=== PATIENT | male | born 1960 | race Caucasian/White ===

== ENCOUNTER 2016-06-21 16:45 | Observation (INO) | payer OTHER ==
[~2016-06-21] VITALS: Ht 172.7 cm; Wt 84.8 kg
--- NOTE | 2016-06-21 16:58 | NUR ---
TRIAGE; PT TO ED WITH CP FOR A FEW WEEKS. STATES THAT HE HAD A HEART ATTACK LAST SEPTEMBER. IS DUE FOR A DIAGNOSTIC CARDIAC CATH TO CHECK STENTS AND A BLOCKAGE. STATES INTERNAL SPECIALIST IS DR BURGESS. FEELS SOB AT TIMES. STATES HIS CHEST FEELS TIGHT CURRENTLY. RA SAT 98% AT THIS TIME.
--- NOTE | 2016-06-21 17:10 | NUR ---
PT AMBULATORY TO RADIOLOGY FOR X-RAY.
--- NOTE | 2016-06-21 17:17 | NUR ---
PT RETURN FROM RADIOLOGY AT THIS TIME.
--- NOTE | 2016-06-21 17:31 | RADIOLOGY REPORT ---
EXAMINATION: XR CHEST CLINICAL INFORMATION: Chest pain. History of myocardial infarction last year COMPARISON: Chest x-ray 09/30/2015 TECHNIQUE: 2 views of the chest were obtained. FINDINGS: No significant abnormality is noted involving the heart, lungs, mediastinum, bony thorax or soft tissues. IMPRESSION: No acute abnormality of the chest.
--- NOTE | 2016-06-21 17:40 | NUR ---
BLOOD DRAWN AND SENT TO LAB
[2016-06-21 17:43] LABS: ABSOLUTE BASOPHIL COUNT 0.1 /CUMM (0.0-0.2); ABSOLUTE EOSINOPHIL COUNT 0.1 /CUMM (0.0-0.7); ABSOLUTE GRANULOCYTE CT 3.8 /CUMM (1.4-6.5); ABSOLUTE LYMPH COUNT 1.9 /CUMM (1.2-3.4); ABSOLUTE MONOCYTE COUNT 0.5 /CUMM (0.10-0.60); BASOPHIL % 1.2 % (0.0-2.0); EOSINOPHIL % 1.3 % (0-5); GRANULOCYTE % 59.4 % (42.2-75.2); HEMATOCRIT 41.5 % (42-52); MEAN CORPUSCULAR HGB 31.9 PG (27.0-31.0); MEAN CORPUSCULAR HGB CONC 33.9 G/DL (33.0-37.0); MEAN CORPUSCULAR VOLUME 94.1 FL (80.0-94.0); MEAN PLATELET VOLUME 7.9 FL (7.4-10.4); PLATELET COUNT 212 /CUMM (130-400); RBC DISTRIBUTION WIDTH 12.5 % (11.5-14.5); RED BLOOD CELL CT 4.41 /CUMM (4.70-6.10); WHITE BLOOD CELL COUNT 6.4 /CUMM (4.8-10.8)
--- NOTE | 2016-06-21 17:45 | NUR ---
MATERIALS SCHEDULER AT BEDSIDE
--- NOTE | 2016-06-21 17:50 | ED CARDIAC/CP/PALPITATIONS ---
History of Present Illness General Chief Complaint: Chest Pain Stated Complaint: CP X COUPLE WEEKS Source: patient Exam Limitations: no limitations Allergies Coded Allergies: NO KNOWN ALLERGIES (09/30/15) Triage Note: TRIAGE; PT TO ED WITH CP FOR A FEW WEEKS. STATES THAT HE HAD A HEART ATTACK LAST SEPTEMBER. IS DUE FOR A DIAGNOSTIC CARDIAC CATH TO CHECK STENTS AND A BLOCKAGE. STATES TRAINING AND DEVELOPMENT REP IS DR BURGESS. FEELS SOB AT TIMES. STATES HIS CHEST FEELS TIGHT CURRENTLY. RA SAT 98% AT THIS TIME. Triage Nurses Notes Reviewed? yes HPI: 55 YO MALE WITH HX OF DE IN SEPTEMBER SP CATH WITH 1 STENT LAD, ON PLAVIX AND ASA , METOPROLOL, TANYA AND STATIN, HERE WITH CO 6MONTHS OF CHEST PAIN, CONSTANT WITH W INTERMITTENT INTENSITY, WOSRE SINCE YESTERDAY. 8/10 SUB STERNAL NON RADIATING TIGHTNESS IN THE CHEST, WORSE WITH ANY ACTIVITY. ASSOCIATED SOB, DIZZINESS, NO NV, MILD DIAPHORESIS. GETTING WORSE OVER THE LAST FEW DAYS. HAD [address]M [address] BURGESS LAST WEEK AND HE WAS CONSIDERING REPEAT CATH PER THE PATIENT. HE WAS GIVEN INDOMETHACIN IN THE PAST, UNSURE IF IT HAS HELPED AT ALL. (DARREN DASH,JORDAN) Vital Signs & Intake/Output Vital Signs & Intake/Output Vital Signs Date Time Temp Pulse Resp B/P Pulse O2 O2 Flow FiO2 Ox Delivery Rate 06/21 2052 97.2 80 18 162/96 91 Room Air 06/21 1657 97.6 64 16 148/91 98 Room Air Reconcile Medications Alprazolam 0.5 MG TABLET 1 TAB PO BID PRN anxeity (Reported) Aspirin (Aspirin*) 325 MG TABLET 1 TAB PO DAILY HEART/BLOOD (Reported) Atorvastatin Calcium 80 MG TABLET 0.5 TAB PO DAILY COLESTEROL (Reported) Cholecalciferol (Vitamin D3) (Vitamin D) 1,000 UNIT TABLET 1 TAB PO DAILY SUPPLEMENT (Reported) Clopidogrel Bisulfate (Clopidogrel) 75 MG TABLET 1 TAB PO DAILY BLOOD THINNER (Reported) Lisinopril 5 MG TABLET 1 TAB PO DAILY HTN (Reported) Melatonin 1 MG TABLET 1 TAB PO AT BEDTIME PRN SLEEP (Reported) Pantoprazole Sodium (Protonix) 40 MG TABLET.DR 1 TAB PO DAILY ACID REFLUX Tadalafil (Cialis) 20 MG TABLET 1 TAB PO AD PRN ED (Reported) (ZEB DE SANTIAGO,GALA Martinez) Past History Travel History Traveled to [place] past 21 day No Medical History Any Pertinent Medical History? see below for history Neurological: NONE EENT: NONE Cardiovascular: hypertension, hyperlipidemia, myocardial infarction Respiratory: NONE Gastrointestinal: GERD, hiatal hernia Hepatic: NONE Renal: KIDNEY STONES Psychiatric: NONE Endocrine: NONE Blood Disorders: NONE Cancer(s): NONE Surgical History Surgical History: CARDIAC STENT Psychosocial History What is your primary language Peruvian Tobacco Use: Never used Family History Hx Contributory? Yes (GRANDFATHER WITH DE IN 50'S) (JORDAN ORNELAS) Review of Systems Review of Systems Constitutional: Reports: see HPI. EENTM: Reports: no symptoms. Respiratory: Reports: no symptoms. Cardiovascular: Reports: see HPI. GI: Reports: no symptoms. Genitourinary: Reports: no symptoms. Musculoskeletal: Reports: no symptoms. Skin: Reports: no symptoms. Neurological/Psychological: Reports: no symptoms. Hematologic/Endocrine: Reports: no symptoms. Immunologic/Allergic: Reports: no symptoms. All Other Systems: Reviewed and Negative (JORDAN ORNELAS) Physical Exam Physical Exam Cardiovascular: regular rate/rhythm Comments: Well-developed well-nourished person in no acute distress HEENT: Normal EENT exam, extraocular motion intact, no nystagmus. Pupils equally round and reactive to light. Nose is atraumatic. Pharynx normal. No swelling or edema. Neck: Supple, no lymphadenopathy, normal range of motion without pain or tenderness Back: Nontender, no CVA tenderness. Full range of motion Cardiovascular: Regular rate and rhythms no murmurs, normal JVP Respiratory: Chest nontender. No respiratory distress. Breath sounds clear to auscultation bilaterally Abdomen: Soft, nontender nondistended, no appreciable organomegaly. Normal bowel sounds. No ascites Extremity: No edema, no calf tenderness to palpation, normal and equal pulses. Neuro: Alert oriented x3, motor sensory normal, cranial nerves II through XII grossly intact. Skin: No appreciable rash on exposed skin, skin is warm and dry. Psych: Mood and affect is normal, memory and judgment is normal. Core Measures ACS in differential dx? Yes Severe Sepsis Present: No Septic Shock Present: No (JORDAN ORNELAS) Progress Differential Diagnosis: AMI, aortic dissection, atrial fibrillation, cholecystitis, CHF/pulm edema, costochondritis, hyperkalemia, hypovolemia, hyperthyroid, hyperventilation, intracranial hemorrhage, musculoskeletal pain, myocarditis, pancreatitis, pericarditis, pneumonia, pneumothorax, PSVT, pulmonary embolism, PUD/GERD, PVCs/PACs, respiratory failure, rib fracture, sepsis, unstable angina, V-fib/V-Tach, WPW syndrome, Primo SYNDROME Diagnostic Imaging: Viewed by Me: Radiology Read. Discussed w/RAD: Radiology Read. CXR Impression: PATIENT: ABDI HAMPTON PRESENT AGE: 55 PATIENT ACCOUNT NO: [id number] : 59 LOCATION: [facility] ORDERING PHYSICIAN: ALVAREZ MORALES DO (TBS) SERVICE DATE: 06/21/16-1658 EXAM TYPE: RAD - XRY- CHEST XRAY, PA AND LATERAL EXAMINATION: XR CHEST CLINICAL INFORMATION: Chest pain. History of myocardial infarction last year COMPARISON: Chest x-ray 2015 TECHNIQUE: 2 views of the chest were obtained. FINDINGS: No significant abnormality is noted involving the heart, lungs, mediastinum, bony thorax or soft tissues. IMPRESSION: No acute abnormality of the chest. DICTATED BY: RANDY HARRINGTON MD DATE/TIME DICTATED:06/21/161725 SUPERVISOR SPEECH:GALILEA DATE/ TIME TRANSCRIBED:06/21/16 Initial ED EKG: NSR, 61 BPM. q WAVES NOTED ANTERIOR, NO st OR t-WAVE CHANGES. oLD ekg SHOWS ACUTE ANTERIOR mi Prior EKG: changed Rhythm Strip: normal sinus rhythm Comments: Patient was seen in the ER by Dr. Burgess. 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 Considering transferring for cath tomorrow if his serial EKGs and troponins are negative. Discussed with Dr. Carrington. (JORDAN ORNELAS) Plan of Care: Orders Procedure Date/time Status Regular Diet 06/22 B Active TROPONIN LEVEL 06/22 0600 Active EKG 06/22 0600 Active TROPONIN LEVEL 06/22 0000 Active EKG 06/22 0000 Active Pathway - chart 06/21 2056 Active Code Status 06/21 2056 Active Intake & Output 06/21 2022 Active OXYGEN SETUP (GEN) 06/21 1856 Active Saline Lock 06/21 1856 Active Misc Message 06/21 1856 Active ED Holding Orders 06/21 1856 Active Vital Signs 06/21 1856 Active Activity/Ambulation 06/21 1856 Active Code Status 06/[address] in observation 06/22 1855 Active Patient Data 06/21 1835 Active Add-on Test (ER Only) 06/21 1813 Active WESTERGREN SED RATE 06/21 1728 Complete TROPONIN LEVEL 06/21 165 Complete COMPREHENSIVE METABOLIC PANEL 06/21 165 Complete CBC WITHOUT DIFFERENTIAL 06/21 165 Complete EKG 06/21 164 Active House Staff 06/21 UNK Active VTE Mechanical Prophylaxis 06/21 UNK Active Current Medications Sig/Ulisses Start time Last Medication Dose Stop Time Status Admin Aspirin 325 MG DAILY 06/22 1000 UNVr (Aspirin) Atorvastatin Calcium 40 MG DAILY 06/22 1000 UNVr (Lipitor) Clopidogrel Bisulfate 75 MG DAILY 06/22 1000 UNVr (Plavix) Enoxaparin Sodium 40 MG DAILY 06/22 1000 UNVr (Lovenox) Lisinopril 5 MG DAILY 06/22 1000 UNVr (Prinivil) Acetaminophen 650 MG Q6P PRN 06/21 2100 UNVr (Tylenol) Alprazolam 0.5 MG BID PRN 06/21 2100 UNVr (Xanax) 06/28 2058 Ibuprofen 600 MG Q6P PRN 06/21 2100 UNVr (Motrin) Morphine Sulfate 2 MG Q8P PRN 06/21 2100 UNVr (Morphine) Laboratory Tests 06/21/16 1728: Anion Gap 12, Estimated GFR > 60, BUN/Creatinine Ratio 16.3, Glucose 82, Calcium 9.5, Total Bilirubin 0.9, AST 45, ALT 53, Alkaline Phosphatase 52, Troponin I < 0.01, Total Protein 7.4, Albumin 4.7, Globulin 2.7, Albumin/Globulin Ratio 1.7, CBC w Diff NO MAN DIFF REQ, RBC 4.41 L, MCV 94.1 H, MCH 31.9 H, RDW 12.5, MPV 7.9, Gran % 59.4, Lymphocytes % 30.1, Monocytes % 8.0, Eosinophils % 1.3, Basophils % 1.2, Absolute Granulocytes 3.8, Absolute Lymphocytes 1.9, Absolute Monocytes 0.5, Absolute Eosinophils 0.1, Absolute Basophils 0.1, PUBS MCHC 33.9, ESR Westergren 2 Departure Departure Disposition: STILL A PATIENT Condition: Stable Clinical Impression Primary Impression: Chest pain Qualifiers: Chest pain type: precordial pain Qualified Code: R07.2 - Precordial pain Referrals: MORRO FERNÁNDEZ MD (PCP/Family) Departure Forms: Customer Survey General Discharge Information Observation Note Spoke With: JENIFER DE SANTIAGO PhD,SRIDEVI Amin Physician Advisor Notified: GALA CARRINGTON MD Place Patient In: Non-ED OBS Care Area Rationale for Observation: My rational for observation is as follows . CHEST PAIN, SP STEMI AND STENT. NEEDS ECHO AND POSSIBLE CATH TOMORROW. (JORDAN ORNELAS) Departure Prescriptions: Current Visit Scripts Pantoprazole Sodium (Protonix) 1 TAB PO DAILY #30 TAB PA/FOOTBALL SCOUT Co-Sign Statement Statement: ED Attending supervision documentation- [X] I saw and evaluated the patient. I have also reviewed all the pertinent lab results and diagnostic results. I agree with the findings and the plan of care as documented in the PA's/FOOTBALL SCOUT's documentation. [X] I have reviewed the ED Record and agree with the PA's/FOOTBALL SCOUT's documentation. [] Additions or exceptions (if any) to the PAs/FOOTBALL SCOUT's note and plan are summarized below: [] (ZEB DE SANTIAGO,GALA Martinez) Critical Care Note Critical Care Note Critical Care Time: non-applicable (JORDAN ORNELAS)
[2016-06-21] MEDS ORDERED: CLOPIDOGREL75 M1 PO (18:10)
[2016-06-21] MEDS ORDERED: ALPRAZOLAM0.5 M4 PO (18:10)
[2016-06-21] MEDS ORDERED: LISINOPRIL5 M1 PO (18:10)
[2016-06-21] MEDS ORDERED: INDOMETHACIN50 M1 PO (18:11)
[2016-06-21] MEDS ORDERED: ATORVASTATIN CA80 M1 PO (18:11)
--- NOTE | 2016-06-21 18:35 | Cons- Cardiology ---
General Information and HPI Consulting Request Date of Consult: 06/21/16 Requested By: ER History of Present Illness: Milo is a 55 year old male with history of hypertension, dyslipidemia and tobacco abuse who had an anterior STEMI complicated by pericarditis. He is now s /p PCI of his LAD. Unfortunately, this patient never experienced complete relief of his chest discomfort although it did improve to some extent. He presents to the ER for persistent chest pressure exacerbated by physical exertion. It is accompanied by shortness of breath. He also tends to feel very fatigued by physical activity. Lightheadedness and palpitations are not part of his clinical syndrome. He is very anxious about the possibility of having another heart attack. Cardiac workup after his SD showed an EF of 37% with no evidence of ischemia. His echocardiogram showed a low normal EF of 50% with mild anteroseptal, anteroapical and apical hypokinesis. There was borderline left ventricular hypertrophy. In terms of cardiac valves he demonstrates trace MR and TR. To review this patient's prior history, he had longstanding epigastric discomfort that was ingored until presenting to [facility] with an acute anterior ST elevation SD. He received a 4.0 x 18mm Resolute stent to his proximal LAD for a 100% stenosis. He also was found to have a 50% stenosis of the proximal large first diagonal branch. The LCX had luminal irregularities and the RCA was non-dominant, tortuous and patent. Post procedure he demonstrated persistent ST elevations and was treated with aspirin at high doses and colchicine for pericarditis. Allergies/Medications Allergies: Coded Allergies: NO KNOWN ALLERGIES (09/30/15) Home Med List: Alprazolam 0.5 MG TABLET 1 TAB PO TIDPRN ANXIETY (Reported) Atorvastatin Calcium 80 MG TABLET 1 TAB PO DAILY COLESTEROL (Reported) Clopidogrel Bisulfate (Clopidogrel) 75 MG TABLET HTN (Reported) Indomethacin 50 MG CAPSULE 1 CAP PO TID PAIN (Reported) with food Lisinopril 5 MG TABLET 1 TAB PO DAILY HTN (Reported) Review of Systems Review of Systems: A twelve point review of systems is unremarkable. Past History Travel History Traveled to [place] past 21 day No Medical History Neurological: NONE EENT: NONE Cardiovascular: hypertension, hyperlipidemia, myocardial infarction (anterior ST elevation) Respiratory: NONE Gastrointestinal: GERD, hiatal hernia Hepatic: NONE Renal: KIDNEY STONES Psychiatric: NONE Endocrine: NONE Blood Disorders: NONE Cancer(s): NONE Surgical History Surgical History: cholecystectomy, vasectomy, AC joint repair Family History Family History Reviewed? Father: SD at age 56 Psychosocial History Smoking Status: Former Smoker (cigars) ETOH Use: occasional use Exam & Diagnostic Data Vital Signs and I&O Vital Signs Date Time Temp Pulse Resp B/P Pulse O2 O2 Flow FiO2 Ox Delivery Rate 06/21 1657 97.6 64 16 148/91 98 Room Air Physical Exam: General: WD/ WN male in NAD; alert and oriented x 3 HEENT: NC/AT, PERRL, EOMI Neck: no JVD, no carotid bruit Heart: RRR w/o murmur Lungs: clear bilaterally Abdomen: soft, NT, +ve bowel sounds Extremities: no edema Diagnostic Data EKG Results sinus with anterior Q waves consistent with old SD Assessment/Plan Assessment/Plan * 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 Follow three sets of cardiac enzymes although the first set is WNL. I doubt an ACS but anticipate a cardiac catheterization to lay this issue to rest. For now continue all his usual cardiac medications without change and give a dose of Toradol. Consult Acknowledgment - Thank you for your consult request.
--- NOTE | 2016-06-21 18:41 | History & Physical ---
General Information and HPI MD Statement: I have seen and personally examined MEMOABDI Nelson and documented this H&P. The patient is a 55 year old M who presented with a patient stated chief complaint of chest pain Allergies/Medications Allergies: Coded Allergies: NO KNOWN ALLERGIES (09/30/15) Home Med list Alprazolam 0.5 MG TABLET 1 TAB PO TIDPRN ANXIETY (Reported) Atorvastatin Calcium 80 MG TABLET 1 TAB PO DAILY COLESTEROL (Reported) Clopidogrel Bisulfate (Clopidogrel) 75 MG TABLET HTN (Reported) Indomethacin 50 MG CAPSULE 1 CAP PO TID PAIN (Reported) with food Lisinopril 5 MG TABLET 1 TAB PO DAILY HTN (Reported) Past History Travel History Traveled to [place] past 21 day No Medical History Neurological: NONE EENT: NONE Cardiovascular: hypertension, hyperlipidemia, myocardial infarction (anterior ST elevation) Respiratory: NONE Gastrointestinal: GERD, hiatal hernia Hepatic: NONE Renal: KIDNEY STONES Psychiatric: NONE Endocrine: NONE Blood Disorders: NONE Cancer(s): NONE Surgical History Surgical History: cholecystectomy, vasectomy AC joint repair Past Family/Social History Psychosocial History Smoking Status: Former Smoker (cigars) ETOH Use: occasional use Exam & Diagnostic Data Diagnostic Data EKG Results sinus with anterior Q waves consistent with old CO Core Measures/Miscellaneous Severe Sepsis Severe Sepsis Present: No Septic Shock Septic Shock Present: No
[2016-06-21] MEDS ORDERED: ASPIRIN325 M2 PO (19:34)
[2016-06-21] MEDS ORDERED: CIALIS20 M1 PO (19:38)
[2016-06-21] MEDS ORDERED: VITAMIN D1000 UNIT PO (19:39)
[2016-06-21] MEDS ORDERED: MELATONIN1 M2 PO (19:40)
--- NOTE | 2016-06-21 19:58 | NUR ---
Emergency Dept UC Admit Note: To be admitted to [facility] by DR BURGESS with CHEST PAIN/DYSPNEA as the diagnosis, to TELE/OBS location. Nursing Linter Tender and admitting notified 06/21/16 at 1859 PT WILL GO TO ROOM ROOM 180-2
--- NOTE | 2016-06-21 20:22 | NUR ---
REPORT GIVEN TO THERESA CLAY
--- NOTE | 2016-06-21 21:08 | NUR ---
TRANSPORT HERE FOR PT
--- NOTE | 2016-06-21 21:14 | History & Physical ---
RAMONA SINGH MD 06/21/162053: General Information and HPI MD Statement: I have seen and personally examined ABDI HAMPTON and documented this H&P. The patient is a 55 year old M who presented with a patient stated chief complaint of worsening chest pain. Source of Information: patient, family, old records Exam Limitations: no limitations History of Present Illness: 88 year old man with past medical history of myocardial infarction s/p PCI with stent, hypertension, hyperlipidemia and GERD seen for evaluation of worsening chest pain over the past three days. Patient has a recent history of anterior ST elevation myocardial infarction on for which he was initially evaluated in the [place] ED and transfered to [facility]. He underwent PCI with placement of a resolute stent in the LAD for a 100% occlusion. Patient reports that since this intervention he has had mild substernal chest discomfort without aggravating or alleviating factors. Patient was recently reportedly evaluated by Dr. Markham in his office at his 6 month follow up where it was deciced that patient would benefit from another cardiac catheterization in the near future for further assessment of his persistent chest pain. This was deferred as the patient has multiple other events in his life that make scheduling this difficult. Presently patient complains of worsening of this persistent chest discomfort over the past three days with pain of 6-7/10 located in his mid chest with radiation to the left and right chest wall and right side of his neck. He reports associated dizzyness and decreased exercise tolerance secondary to shortness of breath but otherwise denies any blurred/double vision, headache, fever, chills, sweating, palpitations, cough, nausea, vomiting, diarrhea, numbness/tingling. 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 his stress, he eats a healthy diet and maintains physical activity with pushups and walking Allergies/Medications Allergies: Coded Allergies: NO KNOWN ALLERGIES (09/30/15) Past History Travel History Traveled to [place] past 21 day No Medical History Neurological: NONE EENT: NONE Cardiovascular: hypertension, hyperlipidemia, myocardial infarction (anterior ST elevation) Respiratory: NONE Gastrointestinal: GERD, hiatal hernia Hepatic: NONE Renal: KIDNEY STONES Psychiatric: NONE Endocrine: NONE Blood Disorders: NONE Cancer(s): NONE Surgical History Surgical History: cholecystectomy, vasectomy AC joint repair Past Family/Social History Psychosocial History Where do you live? Home Who Do You Live With? spouse Services at Home: None Primary Language: Thai Smoking Status: Former Smoker (cigars) ETOH Use: occasional use Review of Systems Review of Systems Constitutional: Reports: see HPI. Exam & Diagnostic Data Last 24 Hrs of Vital Signs/I&O Vital Signs Date Time Temp Pulse Resp B/P Pulse O2 O2 Flow FiO2 Ox Delivery Rate 06/21 2052 97.2 80 18 162/96 91 Room Air 06/21 1657 97.6 64 16 148/91 98 Room Air Physical Exam General Appearance Alert, Oriented X3, Cooperative, No Acute Distress Skin No Rashes, No Breakdown, No Significant Lesion HEENT Atraumatic, PERRLA, EOMI, Mucous Membr. moist/pink Neck Supple, No JVD, +2 Carotid Pulse wo Bruit, No LAD Cardiovascular Regular Rate, Normal S1, Normal S2, No Murmurs, No chest wall tenderness of deformity Lungs Clear to Auscultation, Normal Air Movement Abdomen Normal Bowel Sounds, Soft, No Tenderness, No Hepatospenomegaly, No Masses Neurological Normal Gait, Normal Speech, Normal Tone, Cranial Nerves 3-12 NL Extremities No Clubbing, No Cyanosis, No Edema, Normal Pulses, No Tenderness/ Swelling Vascular Normal Pulses, Pulses Symmetrical Last 24 Hrs of Labs/Joseph: Laboratory Tests 06/21/16 1728: Anion Gap 12, Estimated GFR > 60, BUN/Creatinine Ratio 16.3, Glucose 82, Calcium 9.5, Total Bilirubin 0.9, AST 45, ALT 53, Alkaline Phosphatase 52, Troponin I < 0.01, Total Protein 7.4, Albumin 4.7, Globulin 2.7, Albumin/Globulin Ratio 1.7, CBC w Diff NO MAN DIFF REQ, RBC 4.41 L, MCV 94.1 H, MCH 31.9 H, RDW 12.5, MPV 7.9, Gran % 59.4, Lymphocytes % 30.1, Monocytes % 8.0, Eosinophils % 1.3, Basophils % 1.2, Absolute Granulocytes 3.8, Absolute Lymphocytes 1.9, Absolute Monocytes 0.5, Absolute Eosinophils 0.1, Absolute Basophils 0.1, PUBS MCHC 33.9, ESR Westergren 2 Diagnostic Data EKG Results sinus with anterior Q waves consistent with old CA CXR Results IMPRESSION: No acute abnormality of the chest. Assessment/Plan Assessment: 55 year old man with multiple medical problems significant for recent CA with associated cardiovascular risk factors seen for evaluation of persistent/ worsening chest pain. ED course: Vital signs-temp 97.6, HR 64, RR 16, BP 140/91, 98% on room air line Physical exam remarkable for a middle age man in no acute distress within normal cardiopulmonary examination without any chest wall tenderness or carotid bruit. Lab work was significant for WBC 6.4, Hgb/HCT 14.1/41 5, ESR 2, normal serum chemistries/hepatic function tests, troponin <0.01. Patient was given Toradol that improved the patient's chest pain from a 6-7/10 to "about 3". Given his recent history of a myocardial infarction and multiple cardiovascular risk factors for further events and worsening chest pain patient is to be placed under observation with telemetry in anticipation for a potential cardiac catheterization. 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 Patient is followed by Dr. Markham whom recommended a follow-up cardiac catheterization for his persistent chest pain, however this was deferred due to patient's other obligations. Last echocardiogram reportedly demonstrated an ejection fraction of 50% with mild anteroseptal/anteroapical/apical hypokinses. -Telemetry -Trend troponins/EKGs -Echocardiogram -Aspirin 325 mg by mouth daily -Plavix 75 mg by mouth daily -Nothing by mouth overnight for possible cardiac catheterization tomorrow -Cardiology consult Intermittent dysphasia to solids/liquids with pain Patient reports over the past year having intermittent episodes where he cannot swallow solid foods or even thin liquids such as water associated with severe amounts of pain. He denies any alleviating/aggravating factors. He has reportedly brought this up with his PCP Ivan Fernández MD whom recommended follow-up with a fruit press operator for further evaluation however apparently failed to make the referral. -Outpatient follow-up with gastroenterology for further evaluation Hypertension-Lisinopril 5 mg by mouth daily Hyperlipidemia-atorvastatin 80 mg by mouth daily Anxiety-alprazolam 0.5 mg by mouth twice a day as needed Pain plan-acetaminophen/ibuprofen/morphine Diet-regular diet DVT prophylaxis-Lovenox CODE STATUS-full code As Ranked By This Provider Problem List: 1. Chest pain Qualifiers Chest pain type: precordial pain Qualified Code: R07.2 - Precordial pain Core Measures/Miscellaneous Acute Coronary Syndrome ACS Diagnosis: No Cerebrovascular Accident CVA/TIA Diagnosis: No Congestive Heart Failure CHF Diagnosis: No Venous Thromboembolism VTE Risk Factors: Acute medical illness, Age > [address] [facility] VTE prophylaxis d/t: No contraindications No VTE Pharm Prophylaxis d/t: No contraindications VTE Diagnosis: No VTE Type: NONE VTE Confirmed by (Test): NONE Severe Sepsis Severe Sepsis Present: No Septic Shock Septic Shock Present: No Miscellaneous Documentation Attending Case Discussed With: JENIFER DE SANTIAGO PhD,[facility] Primary Care Physician: MORRO FERNÁNDEZ MD Patient sees these Specialists Dr. Markham Level of Patient Care: Telemetry Consults Needed: Consulting Specialty: Cardiology GEORGETTE MONET 06/21/16 2242: General Information and HPI Allergies/Medications Home Med list Alprazolam 0.5 MG TABLET 1 TAB PO BID PRN anxeity (Reported) Aspirin (Aspirin*) 325 MG TABLET 1 TAB PO DAILY HEART/BLOOD (Reported) Atorvastatin Calcium 80 MG TABLET 0.5 TAB PO DAILY COLESTEROL (Reported) Cholecalciferol (Vitamin D3) (Vitamin D) 1,000 UNIT TABLET 1 TAB PO DAILY SUPPLEMENT (Reported) Clopidogrel Bisulfate (Clopidogrel) 75 MG TABLET 1 TAB PO DAILY BLOOD THINNER (Reported) Lisinopril 5 MG TABLET 1 TAB PO DAILY HTN (Reported) Melatonin 1 MG TABLET 1 TAB PO AT BEDTIME PRN SLEEP (Reported) Pantoprazole Sodium (Protonix) 40 MG TABLET.DR 1 TAB PO DAILY ACID REFLUX Tadalafil (Cialis) 20 MG TABLET 1 TAB PO AD PRN ED (Reported) Resident Review Statement Resident Statement: examined this patient, discussed with computer science intern, agreed with computer science intern, amended to note Other Findings: 55 years old gentleman with past medical history of myocardial infarction status post stent on aspirin & plavix, hyperlipidemia, hypertension,GERD? Came to the hospital with chief complaint of chest pain. 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 Markham. Patient reported having moderate chest discomfort on and off for a couple of months since CA with occasional radiation to the right or left arm, causing to see Dr. Markham multiple times. He was supposed to get the second catheterization in upcoming weeks. He reported for the last couple of weeks is being escalated with occasional dizziness and reduced exercise tolerance, which prompted him to come to the hospital today. Denies any nausea, vomiting, abdominal pain, coughing, headache, fevers, chills, urinary or bowel symptoms, sweating during these weeks. He also reported occasional dysphagia (solids and liquids), which resolved spontaneously and quickly and is not associated with severe HeartBurn. He is an ex- smoker and drinks 1 glass of wine every day. His vital signs on admission were stable and physical exam was unremarkable. Full details are recorded above. CBC showed hemoglobin 14.5, MCV 94.1, BEP,LFT and first troponin was unremarkable EKG showed normal sinus rhythm, QTC 441, Q waves in lead 1, 2, aVL, poor R progression CXR did not show any acute pathology Assessment and plan #Persistent chest pain/Hx of CA/episodes of dysphagia -ddx would be be stable angina, esophageal spasm, Primo syndrome(unlikely due to low ESR) -Admit to telemetry -EKG and troponin 3 -Echocardiogram already done waiting for the results -Pain management with Tylenol, Motrin, morphine -NPO for possible catheterization tomorrow -Dr. Markham is already on board -Continue aspirin 325 and Plavix 75 daily -Given the history of dysphagia patient should follow-up in an outpatient setting for EGD -Continue alprazolam when necessary -Low IV hydration with normal saline from morning #Hypertension -Continue lisinopril and Statin #Full code, DVT prophylaxis is mechanical and Lovenox, NPO for now
[2016-06-21 21:19] VITALS: BP 132/78
[2016-06-22] VITALS: BP 122/80
[2016-06-22 08:14] LABS: ABSOLUTE BASOPHIL COUNT 0 /CUMM (0.0-0.2); ABSOLUTE EOSINOPHIL COUNT 0.1 /CUMM (0.0-0.7); ABSOLUTE GRANULOCYTE CT 2.9 /CUMM (1.4-6.5); ABSOLUTE LYMPH COUNT 1.5 /CUMM (1.2-3.4); ABSOLUTE MONOCYTE COUNT 0.5 /CUMM (0.10-0.60); BASOPHIL % 0.8 % (0.0-2.0); EOSINOPHIL % 1.9 % (0-5); GRANULOCYTE % 56.9 % (42.2-75.2); HEMATOCRIT 43.2 % (42-52); MEAN CORPUSCULAR HGB 32.3 PG (27.0-31.0); MEAN CORPUSCULAR HGB CONC 34.5 G/DL (33.0-37.0); MEAN CORPUSCULAR VOLUME 93.9 FL (80.0-94.0); MEAN PLATELET VOLUME 7.9 FL (7.4-10.4); PLATELET COUNT 200 /CUMM (130-400); RBC DISTRIBUTION WIDTH 12.4 % (11.5-14.5)
[2016-06-22 08:27] VITALS: BP 122/90
--- NOTE | 2016-06-22 11:09 | PN- Cardiology ---
Subjective Subjective: * Minimal chest discomfort at rest. * cardiac enzymes are normal * sinus rhythm with no ECG changes * Patient complains of food not going down when he swallows Objective Vital Signs and I&Os Vital Signs Date Time Temp Pulse Resp B/P Pulse O2 O2 Flow FiO2 Ox Delivery Rate 06/22 826 97.9 68 18 122/90 97 Room Air 06/22 0019 57 122/80 06/22 0000 57 122/80 06/219 98.1 55 18 132/78 97 Room Air 06/213 97.2 80 18 162/96 91 Room Air 06/21 1657 97.6 64 16 148/91 98 Room Air Intake & Output 06/22 1600 06/22 0800 06/22 0000 06/21 1600 06/21 0806/21 0000 Intake Total 0 Output Total Balance 0 Intake, Oral 0 Patient 187 lb Weight Physical Exam: General: WD/ WN male in NAD; alert and oriented x 3 Neck: no JVD, no carotid bruit Heart: RRR w/o murmur Lungs: clear bilaterally Extremities: no edema Assessment/Plan Assessment/Plan * This patient has either Primo's syndrome or esophageal discomfort but he does not have any evidence of an ACS . We will proceed with risk stratification with a treadmill nuclear stress test. If this study is normal then he will be discharge to home on all his pre-admission medications. We will also add Protonix 40mg daily. The patient will be seen as an outpatient by GI for evaluation of possible H. pylori and will have an evaluation with possible manometry and endoscopy for possible esophageal dysmotility. Continue telemetry? Yes
--- NOTE | 2016-06-22 11:38 | PN- Housestaff ---
Subjective Follow-up For: chest pressure Complaints: chest pressure Tele-Events Since Last Visit: SB-SR 44-60 Subjective: Seen and examined at bedside. Complains of chest pressure along with shortness of breath for the past few weeks. Review of Systems Constitutional: Reports: see HPI. Objective Last 24 Hrs of Vital Signs/I&O Vital Signs Date Time Temp Pulse Resp B/P Pulse O2 O2 Flow FiO2 Ox Delivery Rate 06/22 826 97.9 68 18 122/90 97 Room Air 06/22 0019 57 122/80 06/22 0000 57 122/80 06/21 2118 98.1 55 18 132/78 97 Room Air 06/21 2052 97.2 80 18 162/96 91 Room Air 06/21 1657 97.6 64 16 148/91 98 Room Air Intake & Output 06/22 1600 06/22 0806/22 0000 Intake Total 0 Output Total Balance 0 Intake, Oral 0 Patient 187 lb Weight Physical Exam General Appearance: Alert, Oriented X3, Cooperative, No Acute Distress Skin: No Rashes, No Breakdown, No Significant Lesion HEENT: Atraumatic, PERRLA, EOMI, Mucous Membr. moist/pink Neck: Supple, No JVD Lymphatic: Cervical nl Cardiovascular: Regular Rate, Normal S1, Normal S2, No Murmurs Lungs: Clear to Auscultation, Normal Air Movement Abdomen: Normal Bowel Sounds, Soft, No Tenderness Neurological: Normal Speech Extremities: No Edema, Normal Pulses Current Medications: Current Medications Sig/Ulisses Start time Last Medication Dose Route Stop Time Status Admin Acetaminophen 650 MG Q6P PRN 06/21 2100 AC PO Alprazolam 0.5 MG BID PRN 06/21 2100 AC PO 06/28 2058 Aspirin 325 MG DAILY 06/22 1000 DC PO Aspirin 325 MG QPM 06/21 2244 AC 06/22 PO 0019 Atorvastatin Calcium 40 MG 1700 06/22 1700 DC PO Atorvastatin Calcium 40 MG QPM 06/21 224 AC 06/22 PO 0019 Clopidogrel Bisulfate 75 MG DAILY 06/22 1000 DC PO Clopidogrel Bisulfate 75 MG QPM 06/21 224 AC 06/22 PO 0019 Enoxaparin Sodium 40 MG DAILY 06/22 1000 AC SC Ibuprofen 600 MG Q6P PRN 06/21 2100 AC PO Ketorolac 0 .STK-MED ONE 06/21 2028 DC Tromethamine .ROUTE Ketorolac 30 MG ONCE ONE 06/21 1814 DC 06/21 Tromethamine IM 06/21 Lisinopril 5 MG DAILY 06/22 1000 DC PO Lisinopril 5 MG QPM 06/21 2245 AC 06/22 PO 0019 Morphine Sulfate 2 MG Q8P PRN 06/21 2100 AC IV Sodium Chloride 1,000 ML Q20H 06/22 0600 AC 06/22 IV 06/23 0159 0626 Last 24 Hrs of Lab/Joseph Results Last 24 Hrs of Labs/Mics: Laboratory Tests 06/22/16 0700: Anion Gap 9, Estimated GFR > 60, BUN/Creatinine Ratio 17.5, Troponin I < 0.01, CBC w Diff NO MAN DIFF REQ, RBC 4.60 L, MCV 93.9, MCH 32.3 H, RDW 12.4, MPV 7.9, Gran % 56.9, Lymphocytes % 30.0, Monocytes % 10.4 H, Eosinophils % 1.9, Basophils % 0.8, Absolute Granulocytes 2.9, Absolute Lymphocytes 1.5, Absolute Monocytes 0.5, Absolute Eosinophils 0.1, Absolute Basophils 0, PUBS MCHC 34.5 06/22/16 0015: Troponin I < 0.01 06/21/16 1728: Anion Gap 12, Estimated GFR > 60, BUN/Creatinine Ratio 16.3, Glucose 82, Calcium 9.5, Total Bilirubin 0.9, AST 45, ALT 53, Alkaline Phosphatase 52, Troponin I < 0.01, Total Protein 7.4, Albumin 4.7, Globulin 2.7, Albumin/Globulin Ratio 1.7, CBC w Diff NO MAN DIFF REQ, RBC 4.41 L, MCV 94.1 H, MCH 31.9 H, RDW 12.5, MPV 7.9, Gran % 59.4, Lymphocytes % 30.1, Monocytes % 8.0, Eosinophils % 1.3, Basophils % 1.2, Absolute Granulocytes 3.8, Absolute Lymphocytes 1.9, Absolute Monocytes 0.5, Absolute Eosinophils 0.1, Absolute Basophils 0.1, PUBS MCHC 33.9, ESR Westergren 2 Assessment/Plan Assessment: 55 YO M with pmh of [place] (2016) s/p stent on aspirin & plavix, hyperlipidemia, hypertension,GERD. Admitted overnight for ongoing chest discomfort and shortness of breath. Reports that his chest discomfort is present while resting and increases in intensity with exercise. No longer smokes, drinks occasionally. Reports intermittent dysphagia to solids and liquids. Denies unintentional weight loss, hemetemesis. EKGs and troponins have been checked and remain negative. Cardiology wishes to risk stratify him with an nuclear stress test. NPO in anticipation for stress test received plavix, aspirin, statin, lisinopril this morning if stress test is uneventful will discharge according to cardiology recommendations intermitttent dysphagia he will follow up as outpatient, for further workup reports upper gi series done at [facility], had a colonoscopy in 2013 Problem List: 1. Dysphagia 2. Chest discomfort Pain Ratin Pain Location: No pain Pain Goal: Remain pain free Pain Plan: continue current regimen Tomorrow's Labs & Rationales: possible dc today Consulting Request: Consulting Specialty: Cardiology
[2016-06-22] MEDS ORDERED: PROTONIX40 M3 PO (14:06)
--- NOTE | 2016-06-22 14:10 | Patient Discharge Instructions ---
Discharge Instructions General Discharge Information You were seen/treated for: chest pressure Special Instructions: If your chest pressure worsens, or you develop chest pain please return to the hosptial. Please f/u with GI as outpatient. Dr. Clark Diet Continue normal diet: Yes Acute Coronary Syndrome Inclusion Criteria At DC or during hospital stay patient has or had the following: ACS DIAGNOSIS No Discharge Core Measures Meds if any: Prescribed or Continued at Discharge Meds if any: NOT Prescribed or Continued at Discharge Congestive Heart Failure Inclusion Criteria At DC or during hospital stay patient has or had the following: CHF DIAGNOSIS No Discharge Core Measures Meds if any: Prescribed or Continued at Discharge Meds if any: NOT Prescribed or Continued at Discharge Cerebrovascular accident Inclusion Criteria At DC or during hospital stay patient has or had the following: CVA/TIA Diagnosis No Discharge Core Measures Meds if any: Prescribed or Continued at Discharge Meds if any: NOT Prescribed or Continued at Discharge Venous thromboembolism Inclusion Criteria VTE Diagnosis No VTE Type NONE VTE Confirmed by (Test) NONE Discharge Core Measures - Per Current guidelines, there needs to be overlap - treatment for the first 5 days of Warfarin therapy. - If discharged on Warfarin prior to 5 days of - overlap therapy, the patient will need to be - assessed for post discharge needs including - *Post discharge parental anticoagulation - *Warfarin and/or parental anticoagulation education - *Follow up date to check INR post discharge At least 5 days overlap therapy as Inpatient No Meds if any: Prescribed or Continued at Discharge Note: Overlap Therapy is Warfarin and Anticoagulant Meds if any: NOT Prescribed or Continued at Discharge
[2016-06-22 16:29] VITALS: BP 130/84
--- NOTE | 2016-06-22 18:08 | NUCLEAR MEDICINE REPORT ---
EXERCISE STRESS AND RESTING SPECT MYOCARDIAL PERFUSION IMAGING STUDY WITH GATED SPECT IMAGES: CLINICAL INDICATION: STEMI, S/P STENTS, HTN HLD PROCEDURE: Regional myocardial perfusion was assessed using a 1 day protocol. Stress images were obtained on 06/22/2016 following the intravenous administration of 19.1 mCi Tc 99m Myoview. Stress was performed using the standard Shimon protocol, with the patient reaching a peak heart rate of 109% maximal predicted heart rate. Rest images were obtained 06/22/2016 following the intravenous administration of 31 mCi Technetium 99m Myoview. Single photon emission tomographic (SPECT) images were obtained. SPECT images were acquired in a 64 x 64 matrix of 64 projections over 180 degrees. These were reconstructed into standard short axis, horizontal and vertical long axis cardiac projections. FINDINGS: The post stress images show the left ventricular chamber to be normal in size. There is a moderately sized defect that involves the apex and the adjacent apical anterior and apical septal wall segments. The activity in the other owens appears normal. The rest images are not significantly changed from the post stress images. The stress images were obtained using a gated SPECT technique, which permits visualization of wall motion and calculation of the left ventricular ejection fraction. The left ventricular chamber is normal in size. There is severe hypokinesis at the apex in this extends into the adjacent apical anterior and apical septal owens in the regions of diminished perfusion. The calculated left ventricular ejection fraction is 41% on the stress study. Compared to the previous study dated 05/08/2005, the perfusion abnormalities described above on the current study are new. The gated images from the previous study are not available for comparison and the wall motion cannot be compared. Ejection fraction on the current study is significantly lower than on the previous study when it was 59%. IMPRESSION: Abnormal study. A moderately sized fixed perfusion abnormality is present involving the apex and adjacent apical anterior and apical septal owens. No regions of reversible ischemia are present. Severe wall motion abnormality is present in the apex and adjacent apical anterior and apical septal owens corresponding to the regions of decreased perfusion. The left ventricular ejection fraction is mildly depressed.
--- NOTE | 2016-06-22 18:55 | ECHOCARDIOGRAM REPORT ---
ABDI HAMPTON Age: 55 : 1960 Gender: M Exam Date: 06/21/2016 18:43 Exam Location: ER Ht (in): 68 Wt (lb): 187 BSA: 2.04 BP: 148 / 91 Ordering Physician: JORDAN BANKS PA Referring Physician: Mahamed Markham MD, PhD Technologist: Sarah Hobbs RDCS Room Number: ER#20 Indications: CHEST PAIN Rhythm: Sinus Technical Quality: technically limited/ definity contrast given FINDINGS Left Ventricle Normal left ventricular size, wall thickness and systolic function with severe distal septal and mild distal anterior wall hypokinesis. Normal left ventricular diastolic filling pattern for age. The ejection fraction is visually estimated at 70%. Right Ventricle The right ventricle is normal in size and function. Right Atrium The right atrium is normal in size. Left Atrium The left atrium is normal in size. The interatrial septum is intact. Mitral Valve The mitral valve is normal in structure and function. There is mild mitral regurgitation. Aortic Valve Structurally normal aortic valve without significant sclerosis or stenosis. There is no aortic regurgitation. Tricuspid Valve The tricuspid valve is normal in structure and function. There is mild tricuspid regurgitation. Pulmonary artery systolic pressure is normal. Pulmonic Valve Structurally normal pulmonic valve. There is no pulmonic regurgitation. Pericardium Normal pericardium without effusion. No pleural effusion. Great Vessels Normal aortic root dimension. The aortic arch and great vessels are well seen and are normal. CONCLUSIONS 1. Normal EF of 70% with regional wall motion abnormalities as described above. 2. Mild mitral regurgitation. 3. Mild tricuspid regurgitation. Mahamed Markham M.D. (Electronically Signed) Final Date: 22 June 2016 18:54 MEASUREMENTS (Male / Female) Normal Values 2D ECHO LV Diastolic Diameter PLAX 5.0 cm 4.2 - 5.9 / 3.9 - 5.3 cm LV Systolic Diameter PLAX 3.0 cm 2.1 - 4.0 cm LV Fractional Shortening PLAX 40.0 % 25 - 46 % LV Ejection Fraction 2D Teich 70.4 % IVS Diastolic Thickness 0.8 cm LVPW Diastolic Thickness 0.9 cm LV Relative Wall Thickness 0.3 RV Internal Dim ED PLAX 1.7 cm 1.9 - 3.8 cm LVOT Diameter 2.0 cm Aortic Root Diameter 2.8 cm LA Systolic Diameter LX 3.4 cm 3.0 - 4.0 / 2.7 - 3.8 cm LA Volume 37.0 cm 18 - 58 / 22 - 52 cm Ascending Aorta Diameter 3.1 cm DOPPLER AV Peak Velocity 127.0 cm/s AV Peak Gradient 6.5 mmHg AV Mean Velocity 91.2 cm/s AV Mean Gradient 4.0 mmHg AV Velocity Time Integral 27.1 cm LVOT Peak Velocity 107.0 cm/s LVOT Peak Gradient 4.6 mmHg LVOT Mean Velocity 71.1 cm/s LVOT Mean Gradient 2.0 mmHg LVOT Velocity Time Integral 21.4 cm LVOT Stroke Volume 67.2 cm AV Area Cont Eq vti 2.5 cm AV Area Cont Eq pk 2.6 cm MV Peak Velocity 91.0 cm/s MV Peak Gradient 3.3 mmHg MV Mean Velocity 49.5 cm/s MV Mean Gradient 1.0 mmHg Mitral E Point Velocity 67.1 cm/s Mitral A Point Velocity 74.0 cm/s Mitral E to A Ratio 0.9 MV PHT Velocity 94.3 cm/s MV Deceleration [place] 435.0 cm/s MV Pressure Half Time 65.0 ms MV Area PHT 3.4 cm MV Deceleration Time 151.0 ms TR Peak Velocity 213.0 cm/s TR Peak Gradient 18.1 mmHg Right Atrial Pressure 5.0 mmHg Pulmonary Artery Systolic Pressu 23.1 mmHg Right Ventricular Systolic Press 23.1 mmHg PV Peak Velocity 134.0 cm/s PV Peak Gradient 7.2 mmHg PV Mean Velocity 85.0 cm/s PV Mean Gradient 3.0 mmHg PV Velocity Time Integral 28.3 cm LV E' Lateral Velocity 9.2 cm/s Mitral E to LV E' Lateral Ratio 7.3 LV E' Septal Velocity 7.2 cm/s Mitral E to LV E' Septal Ratio 9.3
== END 2016-06-22 19:55 ==
LOC: ENRESERVDT → ENRESERVTM → ERH 16:45 → 1NO 18:56 → ERHI 18:56 → 1NO 21:13
PROVIDERS: Emergency Medicine; Internal Medicine; ADMIT Internal Medicine Interventional Cardiology
DX: R07.9 Chest pain, unspecified (principal); I25.2 Old myocardial infarction; I10 Essential (primary) hypertension; E78.5 Hyperlipidemia, unspecified; K21.9 Gastro-esophageal reflux disease without esophagitis; F41.9 Anxiety disorder, unspecified
CPT/HCPCS: 6020; 36415; 78452; 82436; 93005; 93010; 93016; 93017; 96372; A9502; C8929; G0378; J1650; J1885; Q9957

== ENCOUNTER 2017-12-31 17:20 | Emergency (ER) | payer OTHER ==
[~2017-12-31] VITALS: Ht 172.7 cm; Wt 83.5 kg
[~2017-12-31 17:20] MED LIST: ALPRAZOLAM0.5 M4 PO; ASPIRIN325 M2 PO; ATORVASTATIN CA80 M1 PO; CIALIS20 M1 PO; CLOPIDOGREL75 M1 PO; INDOMETHACIN50 M1 PO; LISINOPRIL5 M1 PO; MELATONIN1 M2 PO; PROTONIX40 M3 PO; VITAMIN D1000 UNIT PO
[2017-12-31 17:52] LABS: ABSOLUTE BASOPHIL COUNT 0 /CUMM (0.0-0.2); ABSOLUTE EOSINOPHIL COUNT 0.1 /CUMM (0.0-0.7); ABSOLUTE GRANULOCYTE CT 3.2 /CUMM (1.4-6.5); ABSOLUTE MONOCYTE COUNT 0.6 /CUMM (0.10-0.60); BASOPHIL % 0.5 % (0.0-2.0); EOSINOPHIL % 1.8 % (0-5); GRANULOCYTE % 54.4 % (42.2-75.2); HEMATOCRIT 41.7 % (42-52); MEAN CORPUSCULAR HGB 31.8 PG (27.0-31.0); MEAN CORPUSCULAR VOLUME 93.4 FL (80.0-94.0); MEAN PLATELET VOLUME 7.5 FL (7.4-10.4); PLATELET COUNT 234 /CUMM (130-400); RBC DISTRIBUTION WIDTH 13.1 % (11.5-14.5); RED BLOOD CELL CT 4.46 /CUMM (4.70-6.10); WHITE BLOOD CELL COUNT 5.9 /CUMM (4.8-10.8)
[2017-12-31 18:03] LABS: PT 11.2 SEC (9.4-12.5); PTT 30 SEC (25-37)
--- NOTE | 2017-12-31 18:45 | Cons- Cardiology ---
General Information and HPI Consulting Request Date of Consult: 12/31/17 Requested By: ER History of Present Illness: Milo is a 57 year old male with history of hypertension, dyslipidemia who had an acute anterior CT complicated by pericarditis. He underwent PCI of the LAD at the time of his CT. This patient's discomfort never totally resolved and he was risk stratified with a treadmill nuclear stress test which showed an excellent exercise tolerance without ischemia. In response to persistent pain I brought this patient back to the lab asst last week and placed a stent to the ostium of his diagonal branch which harbored an 80% stenosis. Post procedure there was visualized to be a 0% residual stenosis with TRAE 3 flow. He nevertheless reported chest pain about one hour post procedure. He has continued to have chest discomfort which occurs at rest and is exacerbated by exercise. It is in a very focal region of the left chest. There is no associated nausea, vomiting or diaphoresis. There is exacerbation by breathing. He otherwise denies lightheadedness or palpitations. Upon review of his ECG there are no acute ischemic changes from baseline. Allergies/Medications Allergies: Coded Allergies: NO KNOWN ALLERGIES (09/30/15) Home Med List: Alprazolam 0.5 MG TABLET 1 TAB PO BID PRN anxeity (Reported) Aspirin (Aspirin*) 325 MG TABLET 1 TAB PO DAILY HEART/BLOOD (Reported) Atorvastatin Calcium 80 MG TABLET 0.5 TAB PO DAILY COLESTEROL (Reported) Cholecalciferol (Vitamin D3) (Vitamin D) 1,000 UNIT TABLET 1 TAB PO DAILY SUPPLEMENT (Reported) Clopidogrel Bisulfate (Clopidogrel) 75 MG TABLET 1 TAB PO DAILY BLOOD THINNER (Reported) Lisinopril 5 MG TABLET 1 TAB PO DAILY HTN (Reported) Melatonin 1 MG TABLET 1 TAB PO AT BEDTIME PRN SLEEP (Reported) Pantoprazole Sodium (Protonix) 40 MG TABLET.DR 1 TAB PO DAILY ACID REFLUX Tadalafil (Cialis) 20 MG TABLET 1 TAB PO AD PRN ED (Reported) Review of Systems Review of Systems: A review of systems is unremarkable. 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 spouse Services at Home: None Primary Language: Thai Exam & Diagnostic Data Vital Signs and I&O Vital Signs Date Time Temp Pulse Resp B/P B/P Pulse O2 O2 Flow FiO2 Mean Ox Delivery Rate 12/31 1728 96.1 70 15 129/84 99 Room Air Room Air Physical Exam: General: WD/WN male in NAD;alert and oriented x 3 HEENT: NC/AT, PERRL, EOMI NEck: no JVD, no carotid bruit Heart: RRR w/o murmur Lungs: clear bilaterally Abdomen: soft, NT, +ve bowel sounds EXtremities: no edema Assessment/Plan Assessment/Plan * This patient has chronic pain and has undergone stress testing that showed an excellent exercise tolerance. I though that his pain was likely musculoskeletal. I nevertheless opted to repeat a cardiac catheterization and placed a stent in an 80% ostial diagonal branch in the hope that this would alleviate his pain. Having done so, there is now concern for acute closure verses a chronic musculoskeletal pain. His discomfort has been constant for a couple days. There are no acute ECG changes. I recommend following two sets of cardiac enzymes and if both sets are in the normal range then the patient can be discharged to home on his usual medications including aspirin, Plavix and a NTG patch. If his enzymes are positive we will admit him, begin IV heparin and plan on a cardiac catheterization. Consult Acknowledgment - Thank you for your consult request.
--- NOTE | 2017-12-31 18:51 | RADIOLOGY REPORT ---
EXAMINATION: XR CHEST CLINICAL INFORMATION: Chest pain. COMPARISON: Chest x-ray 12/19/2017 TECHNIQUE: 2 views of the chest were obtained. FINDINGS: No significant abnormality is noted involving the heart, lungs, mediastinum, bony thorax or soft tissues. Surgical clips present in the upper abdomen. IMPRESSION: Unremarkable examination.
--- NOTE | 2017-12-31 20:12 | ED CARDIAC/CP/PALPITATIONS ---
History of Present Illness General Chief Complaint: Chest Pain Stated Complaint: CHEST PAIN Source: patient Exam Limitations: no limitations Vital Signs & Intake/Output Vital Signs & Intake/Output Vital Signs Date Time Temp Pulse Resp B/P B/P Pulse O2 O2 Flow FiO2 Mean Ox Delivery Rate 01/01 2004 97.1 61 18 141/90 98 12/31 1728 96.1 70 15 129/84 99 Room Air Room Air Allergies Coded Allergies: NO KNOWN ALLERGIES (09/30/15) Reconcile Medications Alprazolam 0.5 MG TABLET 1 TAB PO BID PRN anxeity (Reported) Aspirin (Aspirin*) 325 MG TABLET 1 TAB PO DAILY HEART/BLOOD (Reported) Atorvastatin Calcium 80 MG TABLET 0.5 TAB PO DAILY COLESTEROL (Reported) Cholecalciferol (Vitamin D3) (Vitamin D) 1,000 UNIT TABLET 1 TAB PO DAILY SUPPLEMENT (Reported) Clopidogrel Bisulfate (Clopidogrel) 75 MG TABLET 1 TAB PO DAILY BLOOD THINNER (Reported) Lisinopril 5 MG TABLET 1 TAB PO DAILY HTN (Reported) Melatonin 1 MG TABLET 1 TAB PO AT BEDTIME PRN SLEEP (Reported) Pantoprazole Sodium (Protonix) 40 MG TABLET.DR 1 TAB PO DAILY ACID REFLUX Tadalafil (Cialis) 20 MG TABLET 1 TAB PO AD PRN ED (Reported) Triage Note: PT SENT TO ED BY DR. BURGESS FOR EVAL OF SHARP 4/10 CHEST PAIN X 2 DAYS, PAIN WORSE TODAY. PT HAD CARDIAC STENT PLACED ON SATURDAY, ALSO HAS HX OF MAKER 2 YEARS AGO. NO ACUTE DISTRESS NOTED. NO DIAPHORESIS NOTED. Triage Nurses Notes Reviewed? yes Onset: Abrupt Duration: day(s): (2), continues in ED, intermittent Quality/Severity: sharp Location: LEFT CHEST HPI: Patient presents for evaluation of a left parasternal chest pain. Past History Travel History Traveled to [place] past 21 day No Medical History Any Pertinent Medical History? 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 No Review of Systems Review of Systems Constitutional: Reports: no symptoms. EENTM: Reports: no symptoms. Respiratory: Reports: no symptoms. Cardiovascular: Reports: see HPI. GI: Reports: no symptoms. Genitourinary: Reports: no symptoms. Musculoskeletal: Reports: no symptoms. Skin: Reports: no symptoms. Neurological/Psychological: Reports: no symptoms. Hematologic/Endocrine: Reports: no symptoms. Immunologic/Allergic: Reports: no symptoms. All Other Systems: Reviewed and Negative Physical Exam Physical Exam Cardiovascular: SEE BELOW Comments: Gen.: Well-nourished, well-developed, no acute respiratory distress. Head: Normocephalic, atraumatic. Eyes: Normal inspection bilaterally Ears: Normal inspection bilaterally Nose: Normal inspection Throat/mouth : Moist mucosa Neck: Supple, full range of motion, no goiter Heart: Regular rate and rhythm Lungs: Clear to auscultation bilaterally with normal air entry Chest: Nontender Back: Normal range of motion Abdomen: Soft, nontender, nondistended, normal bowel sounds Extremities: Normal range of motion grossly, equal radial pulses, no cyanosis clubbing or edema, calves nontender Neurologic: Cranial nerves grossly intact, speech is clear Skin: warm and dry Psychiatric: Calm, cooperative, no apparent delusions or hallucinations Core Measures ACS in differential dx? No CVA/TIA Diagnosis No Sepsis Present: No Sepsis Focused Exam Completed? No Progress Differential Diagnosis: AMI, musculoskeletal pain, pericarditis, PUD/GERD, unstable angina Plan of Care: Orders Procedure Date/time Status TROPONIN LEVEL 01/01 2040 Complete EKG 01/01 2040 Active Add-on Test (ER Only) 01/01 2012 Active D-DIMER 12/31 1736 Complete TROPONIN LEVEL 12/31 1732 Complete PARTIAL THROMBOPLASTIN TIME 12/31 173 Complete PROTHROMBIN TIME 12/31 173 Complete COMPREHENSIVE METABOLIC PANEL 12/31 1732 Complete CBC WITHOUT DIFFERENTIAL 12/31 1732 Complete EKG 12/31 172 Active Laboratory Tests 12/31/172024: Troponin I < 0.01 12/31/17 173: Anion Gap 9, Estimated GFR > 60, BUN/Creatinine Ratio 15.0, Glucose 89, Calcium 8.9, Total Bilirubin 0.8, AST 27, ALT 38, Alkaline Phosphatase 57, Troponin I < 0.01, Total Protein 7.2, Albumin 4.5, Globulin 2.7, Albumin/Globulin Ratio 1.7, PT 11.2, INR 1.03, APTT 30, D-Dimer High Sensitivty < 200, CBC w Diff NO MAN DIFF REQ, RBC 4.46 L, MCV 93.4, MCH 31.8 H, MCHC 34.0, RDW 13.1, MPV 7.5, Gran % 54.4, Lymphocytes % 33.6, Monocytes % 9.7 H, Eosinophils % 1.8, Basophils % 0.5, Absolute Granulocytes 3.2, Absolute Lymphocytes 2.0, Absolute Monocytes 0.6 , Absolute Eosinophils 0.1, Absolute Basophils 0 Diagnostic Imaging: Discussed w/RAD: Radiology Read. CXR Impression: no acute abnormality Initial ED EKG: normal sinus rhythm, nonspecific ST T wave chg Prior EKG: unchanged Repeat EKG: unchanged Comments: 12/31/2017 10:12:03 PM I have updated Milo on his test results. He is asymptomatic at this time. I feel he is stable for discharge and follow-up with Dr. Burgess (patient was evaluated by Dr. Burgess in the emergency department and his plan of care discussed with me). Departure Departure Disposition: HOME OR SELF CARE Condition: Stable Clinical Impression Primary Impression: Chest pain Qualifiers: Chest pain type: unspecified Qualified Code: R07.9 - Chest pain, unspecified Referrals: Pro DE SANTIAGO,Marcela (PCP/Family) Additional Instructions: Follow-up as discussed with Dr. Burgess. Notify your primary care doctor this emergency department visit and treatment plan. Return if any concerns or sudden worsening. Thank you for choosing the [facility] Emergency Department for your care. It was a pleasure to serve you today. Stanley Mar M.D. [facility] Departure Forms: Customer Survey General Discharge Information Critical Care Note Critical Care Note Critical Care Time: non-applicable
[2017-12-31 22:15] VITALS: BP 136/82
== END 2017-12-31 22:15 ==
LOC: ERH 17:20
PROVIDERS: Physician Assistant Medical
DX: R07.9 Chest pain, unspecified (principal); I10 Essential (primary) hypertension; I25.2 Old myocardial infarction; K21.9 Gastro-esophageal reflux disease without esophagitis; K44.9 Diaphragmatic hernia without obstruction or gangrene; Z87.891 Personal history of nicotine dependence; Z79.82 Long term (current) use of aspirin
CPT/HCPCS: 71046; 93005; 93010